=== PATIENT | female | born 2005 | race Caucasian/White ===

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

== ENCOUNTER 2023-02-15 14:05 | Emergency (ER) | payer OTHER ==
[~2023-02-15] VITALS: Ht 157.4 cm; Wt 56.7 kg
[2023-02-15 15:20] LABS: BILIRUBIN Negative (Negative); BLOOD Negative (Negative); CLARITY Clear (Clear); COLOR Yellow (Yellow); GLUCOSE Negative (Negative); KETONE Trace (Negative); LEUKO ESTERASE 1+ (Negative); NITRITE Negative (Negative); PH 7.5 (4.5-8.0)
[2023-02-15] MEDS ORDERED: VIBRAMYCIN100 MG PO (15:35)
[2023-02-15 15:42] LABS: BACTERIA 2+; MUCOUS 1+
== END 2023-02-15 16:14 | disposition home or self-care (01) ==
LOC: ED 14:05
PROVIDERS: Nurse Practitioner Family
DX: Z11.3 Encounter for screening for infections with a predominantly sexual mode of transmission (principal); N89.8 Other specified noninflammatory disorders of vagina; R82.998 Other abnormal findings in urine

== ENCOUNTER 2023-03-29 22:11 | Emergency (ER) | payer OTHER ==
[~2023-03-29] VITALS: Ht 157.4 cm; Wt 51.7 kg
[~2023-03-29 22:11] MED LIST changes: +VIBRAMYCIN100 MG PO
== END 2023-03-30 00:09 | disposition home or self-care (01) ==
LOC: ED 22:11
DX: S06.0XAA Concussion with loss of consciousness status unknown, initial encounter (principal); S00.93XA Contusion of unspecified part of head, initial encounter; S00.83XA Contusion of other part of head, initial encounter; H53.8 Other visual disturbances; R42 Dizziness and giddiness; Y08.89XA Assault by other specified means, initial encounter; Y93.89 Activity, other specified; Y92.009 Unspecified place in unspecified non-institutional (private) residence as the place of occurrence of the external cause; Y99.8 Other external cause status

== ENCOUNTER 2023-06-07 13:55 | Emergency (ER) | payer OTHER ==
[~2023-06-07] VITALS: Ht 157.4 cm; Wt 56.7 kg
== END 2023-06-07 14:45 | disposition left against medical advice (07) ==
LOC: ED 13:55
DX: Z00.00 Encounter for general adult medical examination without abnormal findings (principal); Z53.21 Procedure and treatment not carried out due to patient leaving prior to being seen by health care provider

== ENCOUNTER 2023-06-15 15:10 | Emergency (ER) | payer OTHER ==
[~2023-06-15] VITALS: Ht 157.4 cm; Wt 54.4 kg
[2023-06-15 16:30] LABS: BASO # 0.1 10*3/uL (0.0-0.1); BASO % 0.5 % (0.0-1.0); EOS # 0.1 10*3/uL (0.0-0.4); EOS % 1.1 % (1.0-4.0); HEMATOCRIT 44.3 % (37.0-47.0); LYMPH % 16.5 % (27.0-41.0); MEAN CELL VOLUME 96.9 fl (81.0-99.0); MEAN CORPUSCULAR HGB 31.5 pg (27.0-31.0); MEAN CORPUSCULAR HGB CONC 32.5 g/dl (33.0-37.0); MEAN PLATELET VOLUME 8.9 fl (9.6-12.3); MONO # 0.7 10*3/uL (0.1-1.0); MONO % 5.9 % (3.0-9.0); NEUT # 9.3 10*3/uL (2.3-7.9); NEUT % 75.7 % (47.0-73.0); PLATELET COUNT AUTOMATED 290 10*3/uL (130-400); RED BLOOD COUNT 4.57 10*6/uL (4.10-5.10); RED CELL DISTRI WIDTH 12.8 % (0-14.5); WHITE BLOOD COUNT 12.3 10*3/uL (4.8-10.8)
[2023-06-15 16:41] LABS: BILIRUBIN Negative (Negative); BLOOD Negative (Negative); CLARITY Clear (Clear); COLOR Yellow (Yellow); GLUCOSE Negative (Negative); KETONE Negative (Negative); LEUKO ESTERASE Negative (Negative); NITRITE Negative (Negative); SPECIFIC GRAVITY 1.015 (1.001-1.030); UROBILINOGEN 0.2 E.U./dl (0.0-1.0)
[2023-06-15 16:53] LABS: ALKALINE PHOSPHATASE 58 U/L (46-116); BUN 6 mg/dl (9-23); CHLORIDE 106 mmol/L (98-107); POTASSIUM 4.4 mmol/L (3.4-5.1); SGPT/ALT 15 U/L (5-49); TOTAL PROTEIN 7.2 gm/dL (6.0-8.0)
[2023-06-15 16:57] LABS: BACTERIA 3+
[2023-06-15 16:59] LABS: BETA-HCG, QUANT < 3.0 mIU/mL (3-10)
[2023-06-16 08:08] LABS: HBSAG Negative (Negative); HEP B CORE AB, IGM Negative (Negative); HEPATITIS C ANTIBODY Non Reactive (Non Reactive)
== END 2023-06-15 17:43 | disposition home or self-care (01) ==
LOC: ED 15:10
PROVIDERS: Emergency Medicine
DX: Z20.2 Contact with and (suspected) exposure to infections with a predominantly sexual mode of transmission (principal); N89.8 Other specified noninflammatory disorders of vagina; R10.2 Pelvic and perineal pain

== ENCOUNTER 2024-01-19 15:41 | Emergency (ER) | payer OTHER ==
[~2024-01-19] VITALS: Ht 157.4 cm; Wt 59.0 kg
[2024-01-19] MEDS ORDERED: CYCLOBENZAPRINE10 MG PO (16:12)
[2024-01-19] MEDS ORDERED: MELOXICAM15 MG PO (16:12)
== END 2024-01-19 17:42 | disposition home or self-care (01) ==
LOC: ED 15:41
DX: R07.81 Pleurodynia (principal)

== ENCOUNTER 2024-04-01 15:37 | Emergency (ER) | payer OTHER ==
[~2024-04-01] VITALS: Ht 157.4 cm; Wt 61.7 kg
[~2024-04-01 15:37] MED LIST changes: +CYCLOBENZAPRINE10 MG PO; +MELOXICAM15 MG PO
[2024-04-01] MEDS ORDERED: CEPHALEXIN500 M1 PO (16:00)
[2024-04-01] MEDS ORDERED: CEPHALEXIN 500 MG CAP PO ONE (16:05)
== END 2024-04-01 16:06 | disposition home or self-care (01) ==
LOC: ED 15:37
DX: R21 Rash and other nonspecific skin eruption (principal); D64.9 Anemia, unspecified

== ENCOUNTER 2024-05-22 19:50 | Emergency (ER) | payer OTHER ==
[~2024-05-22] VITALS: Ht 157.4 cm; Wt 59.0 kg
[~2024-05-22 19:50] MED LIST changes: +CEPHALEXIN500 M1 PO
== END 2024-05-22 21:08 | disposition home or self-care (01) ==
LOC: ED 19:50
DX: S62.605A Fracture of unspecified phalanx of left ring finger, initial encounter for closed fracture (principal); W23.0XXA Caught, crushed, jammed, or pinched between moving objects, initial encounter; Y93.89 Activity, other specified; Y92.89 Other specified places as the place of occurrence of the external cause; Y99.0 Civilian activity done for income or pay

== ENCOUNTER 2024-07-24 02:07 | Emergency (ER) | payer OTHER ==
[~2024-07-24] VITALS: Ht 157.4 cm; Wt 59.0 kg
[2024-07-24 02:33] LABS: BASO % 0.2 % (0.0-1.0); EOS # 0.1 10*3/uL (0.0-0.4); EOS % 0.3 % (1.0-4.0); HEMATOCRIT 40.9 % (37.0-47.0); MEAN CELL VOLUME 96.2 fl (81.0-99.0); MEAN CORPUSCULAR HGB 31.3 pg (27.0-31.0); MEAN CORPUSCULAR HGB CONC 32.5 g/dl (33.0-37.0); MEAN PLATELET VOLUME 8.9 fl (9.6-12.3); MONO % 4.9 % (3.0-9.0); NEUT # 16.9 10*3/uL (2.3-7.9); NEUT % 86.1 % (47.0-73.0); PLATELET COUNT AUTOMATED 317 10*3/uL (130-400); RED BLOOD COUNT 4.25 10*6/uL (4.10-5.10); RED CELL DISTRI WIDTH 12.1 % (0-14.5); WHITE BLOOD COUNT 19.6 10*3/uL (4.8-10.8)
[2024-07-24] MEDS ORDERED: Acetaminophen/Hydrocodone 5 MG/325 MG TABLET PO ONE ×2 (04:05→06:05)
[2024-07-24] MEDS ORDERED: Ondansetron Hydrochloride 4 MG TAB SL ONE (04:05)
[2024-07-24] MEDS ORDERED: Bacitracin Zinc 14 GM TUBE T ONE (06:05)
== END 2024-07-24 06:06 | disposition home or self-care (01) ==
LOC: ED 02:07
PROVIDERS: Internal Medicine
DX: S01.01XA Laceration without foreign body of scalp, initial encounter (principal); S01.21XA Laceration without foreign body of nose, initial encounter; S01.81XA Laceration without foreign body of other part of head, initial encounter; R10.2 Pelvic and perineal pain; X95.8XXA Assault by other firearm discharge, initial encounter; Y93.89 Activity, other specified; Y92.89 Other specified places as the place of occurrence of the external cause; Y99.8 Other external cause status

== ENCOUNTER 2024-11-28 19:51 | Emergency (ER) | payer OTHER ==
[~2024-11-28] VITALS: Ht 157.4 cm; Wt 60.0 kg
[2024-11-28] MEDS ORDERED: VIBRAMYCIN100 MG PO (20:24)
[2024-11-28 20:43] LABS: BILIRUBIN Negative (Negative); BLOOD 3+ (Negative); CLARITY Cloudy (Clear); COLOR Yellow (Yellow); GLUCOSE Negative (Negative); KETONE Trace (Negative); LEUKO ESTERASE 3+ (Negative); NITRITE Negative (Negative); PH 6.5 (4.5-8.0)
[2024-11-28 20:52] LABS: EPITHELIAL CELLS 16-20; RBC TNTC rbc/hpf (0-2); WBC TNTC wbc/hpf (0-5)
[2024-11-28 20:53] LABS: BACTERIA 1+
[2024-11-28] MEDS ORDERED: MACROBID100 M1 PO (21:14)
[2024-11-28] MEDS ORDERED: cefTRIAXone Sodium 500 MG VIAL IM ONE (21:15)
[2024-11-28] MEDS ORDERED: Doxycycline Hyclate 100 MG CAPSULE PO ONE (21:15)
[2024-11-28] MEDS ORDERED: Nitrofurantoin Monohydrate/N 100 MG CAP PO ONE (21:15)
== END 2024-11-28 21:30 | disposition home or self-care (01) ==
LOC: ED 19:51
PROVIDERS: Nurse Practitioner Family
DX: N39.0 Urinary tract infection, site not specified (principal)